=== PATIENT | female | born 2000 | race Hispanic/Latino ===

== ENCOUNTER 2023-10-13 17:25 | Emergency (ER) | payer MEDICAID ==
[2023-10-13] MEDS ORDERED: Acetaminophen 500 MG TAB ONE (18:16)
== END 2023-10-13 19:25 | disposition home or self-care (01) ==
LOC: CSHERS 17:25
DX: O20.9 Hemorrhage in early pregnancy, unspecified (principal); Z3A.01 Less than 8 weeks gestation of pregnancy
CPT/HCPCS: 76856